=== PATIENT | female | born 1955 | race Caucasian/White ===

== ENCOUNTER 2017-01-06 13:04 | Observation (INO) | payer BC ==
[2017-01-06] MEDS ORDERED: NORMAL SALINE 1,000 ML IV ONE ×2 (13:27→18:26)
[2017-01-06] MEDS ORDERED: ONDANSETRON HCL/PF 2 MG/ML VIAL ONE (13:28)
--- NOTE | 2017-01-06 13:35 | ERNOTE ---
Abdominal HPI - Narrative Date of Service: 01/06/17 - General Chief Complaint: Abdominal Pain Time Seen by Provider: 01/06/17 13:14 Source: patient Exam Limitations: no limitations - Immun/Allergies/Home Medications Immunizatons: IMMUNIZATION HX Immunizations Up to Date Yes History of Influenza Vaccine Yes Allergies/Adverse Reactions: Allergies prochlorperazine edisylate [From Compazine] Adverse Reaction (Severe, Verified 01/06/17 13:12) SOB, paranoia prochlorperazine maleate [From Compazine] Adverse Reaction (Severe, Verified 13:12) SOB, paranoia Home Medications: HOME MEDICATIONS Dextroamphetamine/Amphetamine [Adderall Xr 20 mg Capsule] 40 mg PO DAILY [Last Taken Unknown] Escitalopram Oxalate [Lexapro] 20 mg PO DAILY 04/26/14 [Last Taken Unknown] Levothyroxine Sodium [Synthroid] 125 mcg PO DAILY 04/26/14 [Last Taken Unknown] traMADol HCL [Ultram] 50 mg PO QID PRN 04/26/14 [Last Taken Unknown] Atorvastatin Calcium 40 mg PO DAILY 01/06/17 [Last Taken Unknown] - History of Present Illness Narrative: This is a 61-year-old female who comes to the emergency department with 3-4 weeks of intermittent left lower quadrant abdominal pain. The patient states that the pain initially would be presents for 15 minutes to an hour and then would resolve. She had many hours of good time in between episodes. This has persisted however this morning the pain came on at roughly 2:00 this morning and has not gone away since. She describes it as a sharp deep stabbing type pain located primarily in the left lower quadrant with radiation towards the midline. Movement and palpation make it worse. Bumps in the road make it worse. Nothing makes it better. She denies having any blood in her stool. She denies history of diverticulitis. She does have a history of kidney stones and states this is significantly different. He denies fever or chills, she denies vomiting but says that the pain is making her more nauseated. No rashes or urinary symptoms. No vaginal discharge. She did have a colonoscopy "many years ago" Timing: getting worse Quality: severe, sharpness, stabbing Activities at Onset: rest Modifying Factors - (Improves): Present: other - staying still Modifying Factors - (Worsens): Present: breathing, sitting up, movement Associated Symptoms: Present: nausea. Absent: diarrhea-gross blood, diarrhea- mucous, fever/chills, vomiting Review of Systems - Review of Systems Constitutional: Present: no symptoms reported. Absent: fever, weakness, fatigue , malaise, weight loss EYE: Present: no symptoms reported ENT: Present: no symptoms reported. Absent: sore throat, throat swelling Respiratory: Present: no symptoms reported. Absent: shortness of breath, cough Cardiology: Present: no symptoms reported. Absent: chest pain, palpitations Gastrointestinal/Abdominal: Present: See HPI, nausea. Absent: vomiting Genitourinary: Present: no symptoms reported, hematuria. Absent: frequency, pain, dysuria Musculoskeletal: Present: no symptoms reported Skin: Present: no symptoms reported Neurological: Present: no symptoms reported Endocrine: Present: no symptoms reported Hematologic/Lymphatic: Present: no symptoms reported Psych: Present: no symptoms reported All Other Systems: All systems neg except as marked - Patient's Past Medical History Patient History - Medical: Kidney stone Patient History - Cardiac/Respiratory: No pertinent hx Patient History - Cancer: No Hx of Cancer Patient History - Surgical Procedures: Cholecystectomy, Hysterectomy, Orthopedic Patient History - Other: None - Social History Living Situations: spouse Psych History: No pertinent hx Smoking Status: Current every day smoker Alcohol Use: none Drug Use: none - Immunizations Immunizations Up to Date: Yes History of Influenza Vaccine: Yes Physical Exam - Physical Exam General Appearance: Present: wd/wn, alert, mild distress, other - pain distress mild Eye Exam: Normal inspection: bilateral Ears, Nose, Throat: Present: normal ENT inspection Neck: Present: normal inspection, nontender Respiratory: Present: no respiratory distress, normal breath sounds, no accessory muscle use, chest nontender, lungs clear Cardiovascular/Chest: Present: regular rate, rhythm, no murmur, normal peripheral pulses Gastrointestinal/Abdominal: Present: normal bowel sounds, nondistended, soft, no organomegaly, tenderness, other - patient has pain in the left upper quadrant less than the left lower quadrant no pain on the right side. Equivocal peritoneal signs. No masses.. Absent: nontender Rectal Exam: Present: deferred. Absent: nontender Back Exam: Present: normal inspection, normal range of motion, no CVA tenderness , no vertebral tenderness Extremity Exam: Present: normal inspection Neurological Exam: Present: alert, oriented, normal mood/affect. Absent: no motor/sensory deficits Skin Exam: Present: normal color, warm/dry ED Progress - Results and Orders Patient's Lab Results:: I have reviewed the patient's lab results. - Vital Signs Patient's Vital Signs:: I have reviewed the patient's vital signs. Vital Signs: Vital Signs 01/06/17 13:04 Temperature 36.3 C L Pulse Rate 97 Respiratory 16 Rate Blood Pressure 155/122 O2 Sat by Pulse 97 Oximetry - CT/Ultrasound CT/Ultrasound Narrative: CT of the abdomen and pelvis was read by radiology. Patient has bilateral renal ureteral calculi which are obstructing. On the left patient has ureteropelvic stone as well as several within the pelvis itself. There is a right Upj stone. Notation is also made about small appendicolith as well as mild dilation of the appendix itself. - Progress/Reassessment Chief Complaint: Abdominal Pain Progress:: Improved - pain is better but she is going to be admitted to the hospital. We will give additional pain medicine. Plan - Plan Plan: This patient has a urinary tract infection as well as bilaterally obstructing kidney stones. She is still making urine since she is not completely obstructed. Nevertheless a infected kidney stones are potentially serious. I' ve given her now 2 g of Rocephin. I'm going to admit her to the hospital. If I cannot get a hold of the urologist here I will speak with the urologist in [place]. I will make them aware of the abnormal appendix findings. She has absolutely no tenderness in the right lower quadrant. No rebound or guarding in the right lower quadrant. I think this is more of an incidental finding. I discussed the case with Dr. Elena from urology. He request patient be kept nothing by mouth. He agrees that the antibiotics. He agrees with continuing fluids. He is going to plan to take the patient to the operating room either later tonight or tomorrow. He is presently employed [place]. He has asked that I admit the patient to the internal medicine service. I've spoken with Dr. Bryant who has agreed graciously to admit this patient. Departure - Departure Clinical Impression: UTI (lower urinary tract infection), Ureteral calculus Disposition: [facility] Condition: Stable Referrals: Emely Waller MD [Primary Care Provider] -
[2017-01-06] MEDS ORDERED: MORPHINE SULFATE 4 MG/ML SYRG IV ONE (13:40)
[2017-01-06 13:41] LABS: Urine Bilirubin 1 mg/dl (NEGATIVE); Urine Blood 250 /ul (NEGATIVE); Urine Ketone Negative (NEGATIVE); Urine Nitrite Negative (NEGATIVE); Urine Protein 100 mg/dL (NEGATIVE); Urine Specific Gravity 1.025 SP.GR. (1.005-1.010); Urine Urobilinogen Normal (NORMAL)
[2017-01-06] MEDS ORDERED: MORPHINE SULFATE 4 MG/ML SYRG ONE (13:41)
[2017-01-06] MEDS ORDERED: ONDANSETRON HCL/PF 2 MG/ML VIAL IV ONE (13:41)
[2017-01-06 13:42] LABS: Hematocrit 50.9 % (37.0-47.0); Hemoglobin 17.3 gm/dL (12.5-16.0); Mean Cell Volume 84.1 fl (78-100); Mean Corpuscular Hemoglobin 28.6 pg (27-31); Mean Platelet Volume 9.3 fl (6.0-9.5); Neutrophil # 3.8 K/mm3 (1.3-6.0); Neutrophil % 51.6 % (42-75.0); Platelet Count 300 K/mm3 (150-450); Red Blood Count 6.05 M/mm3 (4.2-5.4); Red Cell Distribution Width 13.7 % (11.5-14.0); White Blood Count 7.4 K/mm3 (4.0-10.5)
[2017-01-06 13:54] LABS: Urine Appearance Cloudy; Urine Bacteria 2+; Urine Color Yellow; Urine RBC >50 /hpf (0-5); Urine WBC 25-50 /hpf (0-5)
[2017-01-06 14:03] LABS: Albumin * 3.9 gm/dl (3.4-5.0); Anion Gap 16.7 mmol/L (6.8-13.8); BUN/Creatinine Ratio 16.8 (9.0-21.6); Bilirubin, Total 0.4 mg/dL (0.0-1.1); Ca. Corrected For Albumin 9.1 mg/dL (8.4-10.2); Calcium * 9.3 mg/dL (7.9-10.9); Carbon Dioxide 22.4 mmol/L (24-32.6); Potassium 4.1 mmol/L (3.4-4.6)
[2017-01-06] MEDS ORDERED: MORPHINE SULFATE 10 MG/ML SYRG IV ONE (15:07)
[2017-01-06] MEDS ORDERED: MORPHINE SULFATE 10 MG/ML SYRG ONE (15:08)
--- NOTE | 2017-01-06 16:36 | HP ---
Chief Complaint - Chief Complaint Date of Service: 01/06/17 Time of Service: 16:04 Chief Complaint: Abdominal pain History of Present Illness: Roxanne is a 61 yo female who presents to the [facility] ER with complaints of sudden worsening of Left lower quadrant abdominal pain. She reports she has had this for the past 6 months off and on. She has also had blood in the urine off and on over this time. She denies fever, chills, or [place] blood. She was seen about two weeks ago in the walk in clinic and diagnosed with a UTI. She was treated initially with Cipro, although reports the culture came back negative. She reports a history of kidney stones. She believes she has had surgical treatment atleast 5 times with the last being 5 years ago. She reports mild nausea and loss of appetite. CT evaluation of abdomen today shows right sided hydronephrosis with 1cm obstructing stone. No perinephritic stranding. - Patient's Past Medical History Patient History - Medical: Anxiety, Arthritis, Kidney stone, UTI'S Patient History - Cardiac/Respiratory: No pertinent hx Patient History - Cancer: No Hx of Cancer Patient History - Surgical Procedures: Cataracts, Cholecystectomy, Hysterectomy Patient History - Other: None LMP (females 10-50): Complete hysterectomy - Family History Mother Family History - Medical: , No pertinent hx Family History - Cardiac/Respiratory: No pertinent hx Family History - Cancer: Lung Father Family History - Medical: , Anxiety, Arthritis Family History - Cardiac/Respiratory: No pertinent hx Family History - Cancer: Stomach Brother Family History - Medical: No pertinent hx Family History - Cardiac/Respiratory: Hyperlipidemia Family History - Cancer: No pertinent family hx Sister Family History - Medical: Depression, Migraines Family History - Cardiac/Respiratory: No pertinent hx Family History - Cancer: No pertinent family hx - Social History Living Situations: spouse Psych History: Hx of Anxiety Smoking Status: Current every day smoker Alcohol Use: none Drug Use: none - Immunizations Immunizations Up to Date: Yes History of Influenza Vaccine: Yes Review Of Systems (GEN) - Review of Systems Generalized/Overall Review: Absent: Weakness, Chills, Fever EENTM: Present: No Symptoms Reported Respiratory: Absent: Cough, Shortness of Breath Cardiac: Absent: Chest Pain, Edema Abdominal: Present: Nausea, Abdominal Pain. Absent: Vomiting, Hematemesis, Constipation, Diarrhea, Melena, Bright blood from rectum Genitourinary: Absent: Burning, Itching, Urgency, Frequency, Hesitancy, Dribbling, Incontinent, Retention, Nocturia, Hematuria Musculoskeletal: Present: No Symptoms Reported Neurological: Present: No Symptoms Reported Skin: Present: No Symptoms Reported Endocrine: Present: No Symptoms Reported Allergies/Adverse Reactions: Allergies Allergy/AdvReac Type Severity Reaction Status Date / Time prochlorperazine edisylate AdvReac Severe SOB, Verified 01/06/17 16:00 [facility]ate AdvReac Severe SOB, Verified 01/06/17 16:00 [From Compazine] [facility] Home Medications: HOME MEDICATIONS Dextroamphetamine/Amphetamine [Adderall Xr 20 mg Capsule] 40 mg PO DAILY [Last Taken Unknown] Escitalopram Oxalate [Lexapro] 20 mg PO DAILY 04/26/14 [Last Taken Unknown] Levothyroxine Sodium [Synthroid] 125 mcg PO DAILY 04/26/14 [Last Taken Unknown] traMADol HCL [Ultram] 50 mg PO QID PRN 04/26/14 [Last Taken Unknown] Atorvastatin Calcium 40 mg PO DAILY 01/06/17 [Last Taken Unknown] Exam - Exam Vital Signs: Vital Signs - Last Taken Temp 36.6 C 01/06/17 15:15 Pulse 86 01/06/17 15:15 Resp 20 01/06/17 15:15 BP 128/73 01/06/17 15:15 Pulse Ox 97 01/06/17 15:15 Constitutional: Present: Alert, Oriented x3, Cooperative ENT Exam: Present: hearing grossly normal Eye Exam: bilateral eye: normal inspection Respiratory: Present: lungs clear, normal breath sounds, no respiratory distress Cardiovascular/Chest: Present: regular rate, rhythm, no murmur Abdomen: Present: Normal bowel sounds, soft, nondistended, tender - Left lower quadrant Extremity: Present: normal inspection Skin Exam: Present: normal color, warm/dry, no cyanosis Diagnostic Studies: Laboratory Results WBC 7.4 K/mm3 (4.0-10.5) 01/06/17 13:35 RBC 6.05 M/mm3 (4.2-5.4) H 01/06/17 13:35 Hgb 17.3 gm/dL (12.5-16.0) H 01/06/17 13:35 Hct 50.9 % (37.0-47.0) H 01/06/17 13:35 MCV 84.1 fl (78-100) 01/06/17 13:35 MCH 28.6 pg (27-31) 01/06/17 13:35 MCHC 34.0 g/dl (32-36) 01/06/17 13:35 RDW 13.7 % (11.5-14.0) 01/06/17 13:35 Plt Count 300 K/mm3 (150-450) 01/06/17 13:35 MPV 9.3 fl (6.0-9.5) 01/06/17 13:35 Immature Gran % (Auto) 0.50 % (0.001-0.429) H 01/06/17 13:35 Immature Gran # (Auto) 0.04 K/mm3 (0.000-0.0310) H 01/06/17 13:35 Neutrophils % 51.6 % (42-75.0) 01/06/17 13:35 Lymphocytes % 41.3 % (20-51) 01/06/17 13:35 Monocytes % 4.4 % (0.0-9) 01/06/17 13:35 Eosinophils % 1.7 % (0.0-3.0) 01/06/17 13:35 Basophils % 0.5 % (0.0-1.0) 01/06/17 13:35 Nucleated RBC % 0.0 k/mm3 (0-1) 01/06/17 13:35 Neutrophils # 3.8 K/mm3 (1.3-6.0) 01/06/17 13:35 Lymphocytes # 3.1 k/mm3 (1.5-3.5) 01/06/17 13:35 Monocytes # 0.3 k/mm3 (0.0-1.0) 01/06/17 13:35 Eosinophils # 0.1 k/mm3 (0.0-0.7) 01/06/17 13:35 Absolute Basophils 0.0 k/mm3 (0.0-0.1) 01/06/17 13:35 Sodium 139 mmol/L (132-142) 01/06/17 13:35 Plasma Sodium 139 mmol/L (130-142) 01/06/17 13:35 Potassium 4.1 mmol/L (3.4-4.6) 01/06/17 13:35 Chloride 104 mmol/L (97-106) 01/06/17 13:35 Carbon Dioxide 22.4 mmol/L (24-32.6) L 01/06/17 13:35 Anion Gap 16.7 mmol/L (6.8-13.8) H 01/06/17 13:35 BUN 16 mg/dL (3-23) 01/06/17 13:35 Creatinine 0.95 mg/dL (0.4-1.4) 01/06/17 13:35 Est GFR (Non-Af Amer) 64 mL/min (60-130) 01/06/17 13:35 BUN/Creatinine Ratio 16.8 (9.0-21.6) 01/06/17 13:35 Random Glucose 98 mg/dL (70-110) 01/06/17 13:35 Calcium 9.3 mg/dL (7.9-10.9) 01/06/17 13:35 Calcium Adj for Albumin 9.1 mg/dL (8.4-10.2) 01/06/17 13:35 Total Bilirubin 0.4 mg/dL (0.0-1.1) 01/06/17 13:35 AST 20 U/L (0-48) 01/06/17 13:35 ALT 24 U/L (19-67) 01/06/17 13:35 Alkaline Phosphatase 148 U/L (50-170) 01/06/17 13:35 Total Protein 8.0 gm/dL (6.2-8.2) 01/06/17 13:35 Albumin 3.9 gm/dl (3.4-5.0) 01/06/17 13:35 Lipase 131 U/L (73-393) 01/06/17 13:35 Urine Color Yellow 01/06/17 13:16 Urine Appearance Cloudy 01/06/17 13:16 Urine pH 6.0 pH (5.0-7.0) 01/06/17 13:16 Ur Specific [place] 1.025 SP.GR. (1.005-1.010) 01/06/17 13:16 Urine Protein 100 mg/dL (NEGATIVE) H 01/06/17 13:16 Urine Glucose (UA) Negative mg/dL (NEGATIVE) 01/06/17 13:16 Urine Ketones Negative mg/dL (NEGATIVE) 01/06/17 13:16 Urine Blood 250 /ul (NEGATIVE) H 01/06/17 13:16 Urine Nitrate Negative (NEGATIVE) 01/06/17 13:16 Urine Bilirubin 1 mg/dl (NEGATIVE) H 01/06/17 13:16 Urine Ictotest Negative (NEGATIVE) 01/06/17 13:16 Prot Sulfosalicylic Acd 4+ mg/dL (0) H 01/06/17 13:16 Urine Urobilinogen Normal EU/dl (NORMAL) 01/06/17 13:16 Ur Leukocyte Esterase 75 /ul (NEGATIVE) H 01/06/17 13:16 Urine RBC >50 /hpf (0-5) H 01/06/17 13:16 Urine WBC 25-50 /hpf (0-5) H 01/06/17 13:16 Ur Epithelial Cells 5-10 /hpf (0-5) H 01/06/17 13:16 Urine Bacteria 2+ (NONE) H 01/06/17 13:16 Urine Culture Comments Culture to follow 01/06/17 13:16 Assessment/Plan - Narrative Narrative: Roxanne is a 61 yo female to be admitted for observation with: 1) Obstructive uropathy with 1cm right ureteral stone causing hydronephrosis. No evidence of pyelonephritis on CT. No leukocytosis or fever. UA may suggest UTI, but this may be from the stone. She was given rocephin in the ER. Urine culture pending. Stone is extremely large and will require surgical services. Will consult Urology. She has already been give antibiotics. Will hold off on additional doses until urology can evaluate. I do not see evidence of an infection based on normal WBC, lack of fever, lack of subjective symptoms such as chills, flushing, rigors. - Assessment/Plan (1) Obstructive uropathy Problem: Acute (2) Urolithiasis Problem: Acute (3) Hydronephrosis Problem: Acute
[2017-01-06] MEDS ORDERED: ONDANSETRON HCL/PF 2 MG/ML VIAL IV PRN (16:40)
[2017-01-06] MEDS ORDERED: traMADol HCL 50 MG TABLET PO PRN (16:41)
--- NOTE | 2017-01-06 18:20 | CONS ---
HPI - General Source: patient - History of Present Illness Initial Comments: 61-year-old female who I am consulted on in [place] for bilateral obstructing ureteral stones. Long history of stone disease and recurrent urinary tract infections. Last stone procedure was 5 years ago at the [facility] by Dr. Baker. Apparently also a sling was taken down. Current problem began about 6 weeks ago when she developed left lower abdominal pain. She was evaluated on 12/15/16 with a urine culture showing no growth. Past urine cultures however have growing Klebsiella multiple times. Pain persisted despite being treated with Cipro. She came back to the ER tonight. Workup in the ER included a stone protocol CT scan which I reviewed the report images. CT scan shows multiple abnormalities. She has an atrophic right kidney with a proximal 1 cm impacted right ureteral stone. The left side is hypertrophic which appears to have compensated for the right suggesting a chronic abnormality. Left side has 4 large approximately 1 cm stones a couple of which appear to be at the left UPJ/renal pelvis causing obstruction. She has been afebrile. She denies any new urinary symptoms dysuria. Her white blood cell count was 7.4. Creatinine was 0.95. Urine appears infected on microscopy. Allergies/Adverse Reactions: Allergies prochlorperazine edisylate [From Compazine] Adverse Reaction (Severe, Verified 01/06/17 16:00) SOB, paranoia prochlorperazine maleate [From Compazine] Adverse Reaction (Severe, Verified 16:00) SOB, paranoia Home Medications: Home Medications Medication Instructions Recorded Last Taken Dextroamphetamine/Amphetamine 40 mg PO DAILY 04/26/14 Unknown [Adderall Xr 20 mg Capsule] Escitalopram Oxalate [Lexapro] 20 mg PO DAILY 04/26/14 Unknown Levothyroxine Sodium [Synthroid] 125 mcg PO DAILY 04/26/14 Unknown traMADol HCL [Ultram] 50 mg PO QID PRN 04/26/14 Unknown Atorvastatin Calcium 40 mg PO DAILY 01/06/17 Unknown - Patient's Past Medical History Patient History - Medical: Anxiety, Arthritis, Cataracts, Kidney stone, UTI'S Patient History - Cardiac/Respiratory: No pertinent hx Patient History - Cancer: No Hx of Cancer Patient History - Surgical Procedures: Cataracts, Cholecystectomy, Hysterectomy Patient History - Other: None LMP (females 10-50): Complete hysterectomy - Family History Family History:: no untoward family reactions to anesthesia - Family History Mother Family History - Medical: , No pertinent hx Family History - Cardiac/Respiratory: No pertinent hx Family History - Cancer: Lung Father Family History - Medical: , Anxiety, Arthritis Family History - Cardiac/Respiratory: No pertinent hx Family History - Cancer: Stomach Brother Family History - Medical: No pertinent hx Family History - Cardiac/Respiratory: Hyperlipidemia Family History - Cancer: No pertinent family hx Sister Family History - Medical: Depression, Migraines Family History - Cardiac/Respiratory: No pertinent hx Family History - Cancer: No pertinent family hx - Social History Living Situations: spouse Psych History: Hx of Anxiety Smoking Status: Current every day smoker Have you smoked in the past 12 months: Yes Do you dip or chew tobacco: No Patient requests Smoking Cessation Consult: Yes Initiate information on Smoking Cessation: Yes Alcohol Use: none Drug Use: none - Immunizations Immunizations Up to Date: Yes History of Influenza Vaccine: Yes Procedures ANESTH INJECT-SPIN CANAL (03/08/07) ARTERIAL BLD GAS MEASURE (12/20/12) CARPAL TUNNEL RELEASE (10/06/11) CYSTOSCOPY NEC (12/21/11) INJECT STEROID (03/08/07) LAPAROSCOP LYSIS-PERITONEAL ADHES (04/05/04) LAPAROSCOPIC CHOLECYSTECTOMY (03/04/03) REMOV URETERAL DRAIN (12/28/11) RETROGRADE PYELOGRAM (07/22/05) SPINAL CANAL INJECT NEC (03/08/07) TU REMOV URETER OBSTRUCT (12/28/11) URETERAL CATHETERIZATION (12/21/11) [ESWL] OF THE KIDNEY, URETER AND/OR BLADDER (10/22/01) Review of Systems - Review of Systems Generalized/Overall Review: Present: No Symptoms Reported EENTM: Present: No Symptoms Reported Respiratory: Present: No Symptoms Reported Cardiac: Present: No Symptoms Reported Abdominal: Present: Abdominal Pain Genitourinary: Present: No Symptoms Reported Musculoskeletal: Present: No Symptoms Reported Neurological: Present: No Symptoms Reported Skin: Present: No Symptoms Reported Endocrine: Present: No Symptoms Reported Physical Examination - Exam Vital Signs: Vital Signs - Last Taken Temp 97.5 F L 01/06/17 17:30 Pulse 77 01/06/17 17:30 Resp 18 01/06/17 17:30 BP 143/77 01/06/17 17:30 Pulse Ox 92 01/06/17 17:30 O2 Oxygen Delivery Method Room Air Constitutional: Present: Alert, Oriented x3, Well developed ENT Exam: Present: normal ENT inspection, hearing grossly normal Neck: Present: full range of motion Respiratory: Present: lungs clear Cardiovascular/Chest: Present: normal peripheral pulses, regular rate, rhythm Abdomen: Present: soft, nontender, nondistended /Rectal: Present: External genitalia normal Extremity: Present: normal range of motion Skin Exam: Present: normal color, warm/dry Neurologic: Present: paving bed maker II-XII nml as tested, no motor/sensory deficits Appearance: Present: appropriate appearance, appropriate insight Eye contact: Present: cooperative Thoughts: Present: normal thought pattern - Results and Findings: Narrative: Based on my review of the CAT scan, labs and urine I would recommend prompt drainage of both kidneys. She has bilateral obstruction with signs of urinary tract infection and history of multiple recurrent urinary tract infections. While no signs of sepsis currently she is certainly at risk for both renal failure as well as sepsis. I would recommend stenting followed by lithotripsy after cultures come back. She doesn't like the stents and is very disappointed by assured her this is the only way we can go or release the only way I feel comfortable treating her. If I performed ureteroscopy and she has an infection she could become very septic very quickly. I will place stents and then await urine culture with follow-up lithotripsy next week - Assessments/Findings (1) Hydronephrosis Problem: Acute (2) Obstructive uropathy Problem: Acute (3) UTI (lower urinary tract infection) Problem: Acute (4) Ureteral calculus Problem: Acute
[2017-01-06] MEDS ORDERED: RINGERS SOLUTION,LACTATED 1,000 ML IV ONE (18:27)
--- NOTE | 2017-01-06 19:04 | OR ---
Operative Report - Dictated Report Narrative: Operation performed: Cystoscopy with bilateral retrograde pyelograms, right renal pelvis washing, bilateral ureteral stent insertion Preoperative diagnosis: bilateral ureteral stones, urinary tract infection Postoperative diagnosis: Same Anesthesia: Gen. Blood loss: None Complications: None Specimens: Bladder wash for culture, right renal pelvis washing for culture Drains: 6 x 24 double-J right ureteral stent, 6 x 26 double-J left ureteral stent Indications: 61-year-old female recurrent stone former presenting with bilateral obstructing ureteral stones, atrophic kidney and signs of urinary tract infection Description of procedure: Patient was properly identified and consented. She was added on emergently for surgery. Brought to the operating room and general anesthesia was induced. She was prepped and draped in the dorsal lithotomy position. Timeout was performed. Rigid cystoscope was passed into the bladder. The bladder was drained. There was some cloudy urine. Single ureters identified bilaterally. Right ureter was cannulated with a Pollack catheter and Isovue contrast was injected for a total of 15 mL. Bilateral retrograde pyelograms were both performed and interpreted by Dr. Gomes. On the right side the retrograde showed a clear obstructing calculus consistent with a 1 cm stone seen on the CT scan in the right mid ureter. I elected to use a solo wire. Through the Pollack catheter I advanced the sole wire and with a little maneuvering it passed around the stone into the upper tract. With gentle pressure I advanced my Pollack catheter over the wire. The wire was removed. There was a hydronephrotic drip seen and the urine was sent via the Pollack catheter for right renal pelvis washing and culture. Contrast was then injected confirming I was in the upper tract without signs of perforation. The wire was replaced and the Pollack catheter removed. Over the wire a 6 x 24 double-J stent was advanced under slow pressure. The wire was removed. Fluoroscopy confirmed the coil within the right renal pelvis. I visualized to coil within the bladder. I then turned my attention to the left side. Once again Isovue contrast was injected via Pollack catheter and the images interpreted by Dr. Gomes. This shows a clear filling defect in the left UPJ consistent with the stone seen on CT scan. A wire was advanced into the upper tract without difficulty. The Pollack catheter was removed. Over the wire a 6 x 26 double-J stent was easily advanced. The wire was removed. Fluoroscopy confirmed a coil within the left upper pole. I visualized the coil within the bladder. There was cloudy drainage coming around the stent. At this point a urine culture was performed from the bladder. The bladder was then drained. Patient was awoken from anesthesia and returned recovery in good condition. Patient will need antibiotics while awaiting culture. If she is doing well clinically could consider discharge tomorrow with oral antibiotics and close follow-up. My plan will be next week perform bilateral ureteroscopy and laser lithotripsy. Would recommend pain medication, oral antibiotics based on last culture as well as oxybutynin for pain/bladder spasms.
[2017-01-06] MEDS ORDERED: OXYBUTYNIN CHLORIDE 5 MG TABLET PO PRN (19:08)
[2017-01-06] MEDS: MORPHINE SULFATE 2 MG/ML DISP.SYRIN IV PRN ×2 (19:16→21:56)
[2017-01-06] MEDS ORDERED: ROSUVASTATIN CALCIUM 20 MG TABLET PO SCH (21:00)
[2017-01-07] MEDS: MORPHINE SULFATE 2 MG/ML DISP.SYRIN IV PRN (00:24)
[2017-01-07] MEDS ORDERED: LEVOTHYROXINE SODIUM 125 MCG TABLET PO SCH (07:00)
[2017-01-07] MEDS ORDERED: ESCITALOPRAM OXALATE 10 MG TAB PO SCH (09:00)
[2017-01-07 10:39] VITALS: BP 149/87
--- NOTE | 2017-01-07 11:04 | DS ---
(1) Obstructive uropathy Diagnosis(s): Roxanne is a 61 yo female who presented to the [facility] ER with bilateral flank pain. CT evaluation showed obstructing stones. Due to pain, evidence of hydronephrosis, and potential UTI she was admitted to observation for pain control, antibiotics, and urological consultation. She was seen by Dr. Gomes who performed Cystoscopy with bilateral retrograde pyelograms, right renal pelvis washing, and bilateral ureteral stent insertion. She did well post-op. She did not have recurrent fevers and pain was controlled. She was discharged to home with urology follow up. Problem: Acute (2) Urolithiasis Problem: Acute (3) Hydronephrosis Problem: Acute Procedures Performed: see notes below List Procedures: 01/06/17 Cystoscopy with bilateral stent placement Discharge Disposition: Home self care Disposition: Home self-care Condition: Stable Discharge Activity: Activity as tolerated Discharge Diet: General/regular food Referrals: Phil Gomes MD [Associate] - (OR - 01/11/17) Problem Oriented Discharge Instructions to Patient/Family: Kidney Stones, Easy- to-Read Prescriptions (Any new or edited meds): HYDROcodone/ACETAMINOPHEN [Hydrocodon-Acetaminophen 5-325] 1 each PO Q6H PRN # 40 tablet PRN Reason: Moderate Pain Oxybutynin Chloride [Ditropan] 5 mg PO TID PRN #30 tablet PRN Reason: antispasmodics Complete Home Medications List: Complete Home Medication List: Dextroamphetamine/Amphetamine [Adderall Xr 20 mg Capsule] 40 mg PO DAILY Escitalopram Oxalate [Lexapro] 20 mg PO DAILY 04/26/14 Levothyroxine Sodium [Synthroid] 125 mcg PO DAILY 04/26/14 Atorvastatin Calcium 40 mg PO DAILY 01/06/17 HYDROcodone/ACETAMINOPHEN [Hydrocodon-Acetaminophen 5-325] 1 each PO Q6H PRN # 40 tablet 01/07/17 Oxybutynin Chloride [Ditropan] 5 mg PO TID PRN #30 tablet 01/07/17
== END 2017-01-07 11:20 | disposition home or self-care (01) ==
LOC: ER 13:04 → MS 15:22
PROVIDERS: ADMIT Family Medicine; ATTEND Family Medicine
PROC: BT14YZZ Fluoroscopy of Kidneys, Ureters and Bladder using Other Contrast (ICD-10-PCS; 2017-01-06)
PROC: 0T788DZ Dilation of Bilateral Ureters with Intraluminal Device, Via Natural or Artificial Opening Endoscopic (ICD-10-PCS; principal; 2017-01-06 17:30)
DX: N13.6 Pyonephrosis (principal); N11.1 Chronic obstructive pyelonephritis
CPT/HCPCS: 36415; 52332; 52351; 74176; 74420; 76000; 80053; 81001; 83690; 85025; 87086; 96365; 96366; 96375; 96376; 99284; G0378; J2405

== ENCOUNTER 2017-01-27 07:56 | Day surgery (SDC) | payer BC ==
[~2017-01-27 07:56] MED LIST: ACETAMINOPHEN WITH CODEINE 1 EACH TABLET PO PRN; CIPROFLOXACIN HCL 500 MG TABLET PO PRN; oxyCODONE HCL/ACETAMINOPHEN 1 TAB TABLET PO PRN
[2017-01-27 08:49] VITALS: BP 135/81
== END 2017-01-27 07:57 | disposition home or self-care (01) ==
LOC: AMB 07:56
PROVIDERS: ATTEND Urology
PROC: 0TP98DZ Removal of Intraluminal Device from Ureter, Via Natural or Artificial Opening Endoscopic (ICD-10-PCS; principal; 2017-01-27 09:20)
DX: N20.0 Calculus of kidney (principal); F17.200 Nicotine dependence, unspecified, uncomplicated; Z68.20 Body mass index [BMI] 20.0-20.9, adult

== ENCOUNTER 2017-02-10 12:24 | Day surgery (SDC) | payer BC ==
[~2017-02-10 12:24] MED LIST changes: -CIPROFLOXACIN HCL 500 MG TABLET PO PRN; +MORPHINE SULFATE 2 MG/ML DISP.SYRIN IV PRN; +ONDANSETRON HCL/PF 2 MG/ML VIAL IV PRN; +OXYBUTYNIN CHLORIDE 5 MG TABLET PO PRN
[2017-02-10] MEDS ORDERED: AMPICILLIN SODIUM 1,000 MG in NORMAL SALINE 100 ML IV PRN (13:07)
[2017-02-10] MEDS ORDERED: GENTAMICIN SULFATE 80 MG in DEXTROSE 5 % IN WATER 100 ML IV PRN ×2 (13:08)
[2017-02-10] MEDS ORDERED: RINGER'S SOLUTION,LACTATED 1,000 ML IV ONE (13:15)
[2017-02-10 16:18] VITALS: BP 137/68
== END 2017-02-10 12:25 | disposition home or self-care (01) ==
LOC: AMB 12:24
PROVIDERS: ATTEND Urology
PROC: 0T778DZ Dilation of Left Ureter with Intraluminal Device, Via Natural or Artificial Opening Endoscopic (ICD-10-PCS; principal; 2017-02-10 14:05)
DX: N13.1 Hydronephrosis with ureteral stricture, not elsewhere classified (principal); N13.30 Unspecified hydronephrosis; F17.210 Nicotine dependence, cigarettes, uncomplicated; Z68.29 Body mass index [BMI] 29.0-29.9, adult

== ENCOUNTER 2017-02-17 08:07 | Day surgery (SDC) | payer BC ==
[~2017-02-17 08:07] MED LIST changes: -ACETAMINOPHEN WITH CODEINE 1 EACH TABLET PO PRN; +CIPROFLOXACIN HCL 500 MG TABLET PO PRN; -MORPHINE SULFATE 2 MG/ML DISP.SYRIN IV PRN; -ONDANSETRON HCL/PF 2 MG/ML VIAL IV PRN; -OXYBUTYNIN CHLORIDE 5 MG TABLET PO PRN; -oxyCODONE HCL/ACETAMINOPHEN 1 TAB TABLET PO PRN
--- OUTSIDE RECORDS SUMMARY | 2017-02-17 08:11 | XMS REPORT | Summary of Care ---
:1955 Author Organization [facility] Care Team Providers Name Role Phone Emely Waller Primary Care Physician Encounter Date(s): 01/11/17 - 01/11/17 [facility] [address] [place], [place] [address] Discharge Disposition: Discharged to Home or Self Care Attending Physician: Phil Gomes MD Admitting Physician: Phil Gomes MD Vital Signs Most recent to oldest [Reference 1 2 3 Range]: Temperature Temporal Artery [36-38 36.4 DegC 36.9 DegC 36.6 DegC DegC] (01/11/17 1:50 PM) (01/11/17 1:40 PM) (01/11/17 1:06 PM) Heart Rate Monitored [60-100 bpm] 81 bpm 80 bpm 82 bpm (01/11/17 2:20 PM) (01/11/17 1:50 PM) (01/11/17 1:40 PM) Respiratory Rate [12-20 br/min] 18 br/min 16 br/min 13 br/min (01/11/17 2:20 PM) (01/11/17 1:50 PM) (01/11/17 1:40 PM) SpO2 [90-100 %] 93 % 95 % 93 % (01/11/17 2:20 PM) (01/11/17 1:50 PM) (01/11/17 1:40 PM) SpO2 Location Right hand (01/11/17 1:06 PM) Blood Pressure [90-130/60-90 mmHg] 145/71mmHg 117/86mmHg 143/71mmHg *HI* (01/11/17 1:50 PM) *HI* (01/11/17 2:20 PM) (01/11/17 1:40 PM) Incentive Spirometry Completed No (01/11/17 1:20 PM) Most recent to oldest [Reference Range]: 1 2 3 Height/Length Measured 149 cm (01/11/17 9:57 AM) Height/Length Estimated 149.8 cm 149.8 cm (01/11/17 9:57 AM) (01/09/17 2:37 PM) Weight Estimated 62.6 kg 62.6 kg (01/11/17 9:57 AM) (01/09/17 2:37 PM) Weight Dosing 64.7 kg (01/11/17 9:57 AM) Weight Measured 64.7 kg (01/11/17 9:57 AM) BSA Measured 1.59 m2 (01/11/17 9:57 AM) BSA Estimated 1.61 m2 (01/11/17 9:57 AM) Body Mass Index Measured 29.14 kg/m2 (01/11/17 9:57 AM) Body Mass Index Estimated 27.9 kg/m2 (01/11/17 9:57 AM) Problem List No data available for this section Allergies, Adverse Reactions, Alerts Substance Reaction Severity Status Compazine psych Active Medications atorvastatin 40 mg oral tablet 1 tab(s), Oral, Daily, # 30 tab(s), 0 Refill(s), Start Date: 10/30/15 11:08:00 CDT Start Date: 10/30/15 Status: OrderedBactrim DS 800 mg-160 mg oral tablet 1 tab(s), Oral, BID, # 20 tab(s), 0 Refill(s), Start Date: 01/11/17 10:09:00 CDT Start Date: 01/11/17 Stop Date: 01/21/17 Status: Ordereddextroamphetamine-amphetamine 20 mg oral capsule, extended release 2 cap(s), Oral, qAM, PRN concentration, 0 Refill(s), Start Date: 10/30/15 11:08: 00 CDT Start Date: 10/30/15 Status: Orderedescitalopram 20 mg oral tablet 1 tab(s), Oral, Daily, # 30 tab(s), 0 Refill(s), Start Date: 10/30/15 11:07:00 CDT Start Date: 10/30/15 Status: Orderedlevothyroxine 125 mcg (0.125 mg) oral tablet 1 tab(s), Oral, Daily, # 30 tab(s), 0 Refill(s), Start Date: 01/09/17 14:40:00 CDT Start Date: 01/09/17 Status: OrderedNorco 5 mg-325 mg oral tablet 1 tab(s), Oral, q4hr, PRN for pain, X 5 days, # 30 tab(s), 0 Refill(s), Start Date: 01/11/17 13:18:00 CDT, Pharmacy: [facility] [id number] Start Date: 01/11/17 Stop Date: 01/16/17 Status: OrderedNorco 5 mg-325 mg oral tablet 1 tab(s), Oral, q4hr, PRN for pain, 0 Refill(s), Start Date: 01/11/17 10:10:00 CDT Start Date: 01/11/17 Status: Orderedoxybutynin 5 mg oral tablet 1 tab(s), Oral, TID, PRN for urinary discomfort, # 30 tab(s), 0 Refill(s), Start Date: 01/11/17 10:10:00 CDT Start Date: 01/11/17 Status: Orderedoxybutynin 5 mg oral tablet 1 tab(s), Oral, TID, PRN for urinary discomfort, # 21 tab(s), 1 Refill(s), Start Date: 01/11/17 13:18:00 CDT, Pharmacy: [facility] [id number] Start Date: 01/11/17 Stop Date: 01/25/17 Status: OrderedtraMADol 50 mg oral tablet 1 tab(s), Oral, q4hr interval, PRN as needed for pain, 0 Refill(s), Start Date: 10/30/15 11:07:00 CDT Start Date: 10/30/15 Status: Ordered Results Patient Viewable Results Most recent to oldest [Reference 1 2 3 Range]: AN - Fi O2 87 % % 56 % % 57 % % (01/11/17 1:00 PM) (01/11/17 12:55 PM) (01/11/17 12:50 PM) Immunizations No data available for this section Procedures Procedure Date Related Diagnosis Body Site Cystoureteroscopy With Lithotripsy (Bilateral)1 01/11/17 Cataract extraction2 07/2016 Carpal tunnel release3 Cholecystectomy Colonoscopy4 Cystoureteroscopy Hysterectomy multiple stone surgeries 1auto-populated from documented surgical [id number] unsure of when last one was Social History No data available for this section Assessment and Plan No data available for this section
--- OUTSIDE RECORDS SUMMARY | 2017-02-17 08:11 | XMS REPORT | Summary of Care ---
:1955 Author Organization [facility] Address [address] [place] [address] Care Team Providers Name Role Phone Lindsay Wallerhy Naty Primary Care Physician Encounter Date(s): 01/18/17 - 01/18/17 [facility], [address] [place], [place] [address] [place] Discharge Diagnosis: Nephrolithiasis Discharge Disposition: Discharged to Home or Self Care Attending Physician: Juaquin Jimenes MD Vital Signs No data available for this section Problem List Condition Effective Dates Status Health Status Informant Nephrolithiasis(Confirmed) Active Allergies, Adverse Reactions, Alerts Substance Reaction Severity [...] Refill(s), Start Date: 01/11/17 13:18:00 CDT, Pharmacy: [facility] [id number] Start Date: 01/11/17 Stop Date: 01/16/17 Status: CompletedNorco 5 mg-325 mg oral tablet 1 tab(s), [...] Refill(s), Start Date: 01/11/17 13:18:00 CDT, Pharmacy: [facility] [id number] Start Date: 01/11/17 Stop Date: 01/25/17 Status: OrderedtraMADol 50 mg oral tablet 1 tab(s), Oral, q4hr interval, PRN as needed for pain, 0 Refill(s), Start Date: 10/30/15 11:07:00 CDT Start Date: 10/30/15 Status: Ordered Results No data available for this section Immunizations No data available for this section Procedures Procedure Date Related Diagnosis Body Site Cystoureteroscopy With Lithotripsy (Bilateral)1 01/11/17 Cataract extraction2 07/2016 Carpal tunnel release3 Cholecystectomy Colonoscopy4 Cystoureteroscopy Hysterectomy multiple stone surgeries 1auto-populated from documented surgical [id number] unsure of when last one was Social History No data available for this section Assessment and Plan No data available for this section
[2017-02-17] MEDS ORDERED: LIDOCAINE HCL 10 APPL CARTRIDGE TP ONE (09:07)
[2017-02-17 16:35] VITALS: BP 146/64
== END 2017-02-17 08:08 | disposition home or self-care (01) ==
LOC: AMB 08:07
PROVIDERS: ATTEND Urology
PROC: 0TP98DZ Removal of Intraluminal Device from Ureter, Via Natural or Artificial Opening Endoscopic (ICD-10-PCS; principal; 2017-02-17 08:50)
DX: Z46.6 Encounter for fitting and adjustment of urinary device (principal); N13.30 Unspecified hydronephrosis; F17.210 Nicotine dependence, cigarettes, uncomplicated; Z68.29 Body mass index [BMI] 29.0-29.9, adult